=== PATIENT | male | born 1955 | race Caucasian/White ===

== ENCOUNTER 2018-11-28 09:42 | Day surgery (SDC) | payer OTHER ==
[~2018-11-28] VITALS: Ht 185.4 cm; Wt 103.2 kg
[~2018-11-28 09:42] MED LIST: ACYC200 PO; Fish Oil 10001000 MG PO; LISI20 PO; SINEMET 25-1001 EACH PO; ZESTORETIC 20-121 EA PO
--- NOTE | 2018-11-28 12:20 | NUR ---
11/28/18 1220 Sarah Perez PT. REFUSED ANY P.O. WHEN OFFERED. PT. STATED "I'M OK."
== END 2018-11-28 12:05 | disposition home or self-care (01) ==
LOC: ORSCSDS 09:42
PROVIDERS: Internal Medicine Gastroenterology
PROC: 0DJD8ZZ Inspection of Lower Intestinal Tract, Via Natural or Artificial Opening Endoscopic (ICD-10-PCS; principal; 2018-11-28 11:00)
DX: R19.5 Other fecal abnormalities (principal); I10 Essential (primary) hypertension; Z79.899 Other long term (current) drug therapy
CPT/HCPCS: J2704; J7120